=== PATIENT | female | born 2005 | race Caucasian/White ===

== ENCOUNTER 2024-11-19 22:12 | Emergency (ER) | payer SELFPAY ==
[~2024-11-19] VITALS: Ht 160 cm; Wt 63.0 kg
[2024-11-19 22:25] VITALS: BP 145/82; PULSE 121; RESP 18; TEMP 36.2; O2SAT 99
== END 2024-11-19 22:53 | disposition home or self-care (01) ==
LOC: ER 22:12
DX: M25.511 Pain in right shoulder (principal); F31.9 Bipolar disorder, unspecified
CPT/HCPCS: 99283